=== PATIENT | female | born 1980 | race Caucasian/White ===

== ENCOUNTER → 2019-08-26 | Outpatient (CLI) | payer OTHER ==
[~2019-08-26] MED LIST: ACET325; ALBU90OI INH; AMPDEX10CR PO; BIRTH CONTROL; CEPH500 PO; CHLO25 PO; CITA20 PO; CLIN150; CLIN150 PO; CLIN300 PO; CYCL10 PO; DIAZ5 PO; DISU250; DOXY100 PO; FAMO20; HYDACE5 PO; HYDCHLSU PO; HYDGUAL120 PO; HYDHCL25 PO; IBUP800 PO; METHI10 PO; METO10 PO; MULVITA PO; MULVITMINE PO; NAPR220 PO; NAPR375 PO; NAPR500 PO; NITR100CA PO; NIX; OMEP20ER PO; ONDA4 PO; ONDA4ODT MM; ONDA8ODT MM; OXYACE5T PO; PENVK500 PO; PREN-16 PO; PROC10 PO; PROM25 PO; PROM25S PR; Prilosec20 MG PO; RANI150 PO; RXONDA4ODT MM; RXOXYACE PO; RXPROACE PO; SERT100; SERT100 PO; SULTRIDS PO; TRAM50 PO; Ultram50 MG PO
[2019-08-26 19:29] LABS: BASOPHILS ABSOLUTE AUTO 0.04 K/mm3 (0.00-0.23); BASOPHILS PERCENT AUTO 1 % (0-2); EOSINOPHILS ABSOLUTE AUTO 0.05 K/mm3 (0.00-0.68); EOSINOPHILS PERCENT AUTO 1 % (0-6); Hematocrit 39.3 % (33.0-51.0); Hemoglobin 13.5 g/dL (11.5-16.0); IMMATURE GRAN ABSOLUTE AUTO 0.01 K/mm3 (0.00-0.10); IMMATURE GRAN PERCENT AUTO 0 % (0-1); LYMPHOCYTES PERCENT AUTO 50 % (21-46); MONOCYTES ABSOLUTE AUTO 0.43 K/mm3 (0.16-1.47); MONOCYTES PERCENT AUTO 9 % (4-13); Mean Corpuscular HGB 32.5 pg (26.0-34.0); Mean Corpuscular HGB Conc 34.4 g/dL (31.5-36.5); Mean Corpuscular Volume 95 fL (80-100); Mean Platelet Volume 11.4 fL (9.1-12.4); NEUTROPHILS ABSOLUTE AUTO 1.94 K/mm3 (1.96-9.15); NEUTROPHILS PERCENT AUTO 39 % (41-73); Platelet Count 248 K/mm3 (150-400); RDW Coefficient Variation 11.9 % (11.7-14.2); RDW Standard Deviation 41.7 fL (35.1-46.3); Red Blood Cell Count 4.15 M/mm3 (3.80-5.20); White Blood Cell Count 4.97 K/mm3 (4.00-11.30)
[2019-08-26 20:53] LABS: Alanine Aminotransfer (ALT/SGP 121 U/L (12-78); Albumin, Blood 4.1 g/dL (3.4-5.0); Alk Phos 71 U/L (50-136); Anion Gap 4 mmol/L (6-16); Aspartate Aminotrans (AST/SGOT 122 U/L (12-37); Bilirubin, Total 0.9 mg/dL (0.1-1.0); Blood Urea Nitrogen 3 mg/dL (8-24); Bun/Creatinine Ratio 5.4 (12.0-20.0); CHOL/HDL RATIO 2.3; CO2, Blood 27 mmol/L (21-32); Calcium, Blood 9.3 mg/dL (8.5-10.1); Chloride, Blood 107 mmol/L (98-108); Cholesterol 171 mg/dL (50-200); Creatinine, Blood 0.55 mg/dL (0.40-1.00); Glomerular Filtration Rate >60 (60-); Glucose, Blood 89 mg/dL (70-99); HDL Cholesterol 75 mg/dL (>39); LDL/HDL RATIO 1.1; Low Density Lipoprotein Chol 86 mg/dL (0-110); Potassium, Blood 3.6 mmol/L (3.5-5.5); Sodium, Blood 138 mmol/L (136-145); Total Protein, Blood 8.1 g/dL (6.4-8.2); Triglycerides 49 mg/dL (30-160); Very Low Density Lipoprot Chol 10 mg/dL (6-32)
== END ==
LOC: LAB SHORT 18:01 → LAB 18:01
DX: F10.10 Alcohol abuse, uncomplicated (principal); E78.5 Hyperlipidemia, unspecified; E05.90 Thyrotoxicosis, unspecified without thyrotoxic crisis or storm
CPT/HCPCS: 80053; 80061; 84443; 85025

== ENCOUNTER 2023-12-02 06:25 | Emergency (ER) | payer OTHER ==
[~2023-12-02] VITALS: Ht 167.6 cm; Wt 65.8 kg
[2023-12-02 07:08] VITALS: BP 133/74
== END 2023-12-02 07:58 | disposition home or self-care (01) ==
LOC: ER 06:25
DX: J02.9 Acute pharyngitis, unspecified (principal); F17.200 Nicotine dependence, unspecified, uncomplicated; Z88.0 Allergy status to penicillin; Z79.899 Other long term (current) drug therapy
CPT/HCPCS: 87081; 87430; 99283; J1100